=== PATIENT | male | born 1940 | race Caucasian/White ===

== ENCOUNTER → 2020-04-07 11:48 | Outpatient (BNVA) | payer MEDICARE, BC, SELFPAY | PROVIDERS: Family Provider Family Medicine; PCP Family Medicine; Visit Provider Nurse Practitioner Family | DX: I10 Essential (primary) hypertension (principal); E03.9 Hypothyroidism, unspecified; E78.5 Hyperlipidemia, unspecified; Z79.899 Other long term (current) drug therapy; Z12.5 Encounter for screening for malignant neoplasm of prostate | CPT/HCPCS: 36415; 80053; 80061; 81003; 83036; 84443; 85025; G0103 ==

== ENCOUNTER 2020-08-10 11:58 | Emergency (ER) | payer MEDICARE, BC, SELFPAY ==
[2020-08-10] VITALS (13 sets, daily range): BP systolic 113–141; BP diastolic 74–102; PULSE 70–90; RESP 12–27; TEMP 36.6–37.1; O2SAT 97–98; BMI 28.7
--- NOTE | 2020-08-10 12:36 | XR_ITS ---
WS: [id number] PORTABLE CHEST HISTORY: covid. Possible pneumonia. COMPARISON: None available. Lungs are clear and well expanded. No pleural effusion or pneumothorax. Cardiac size: Normal. Mediastinum/Aorta: Normal mediastinum. No osseous abnormality seen. XR/XR chest 1V portable [id number] IMPRESSION: Unremarkable portable chest.
--- NOTE | 2020-08-10 12:39 | W.ED.COVID ---
HPI - COVID General: Chief Complaint: Infusion [place] Stated Complaint: Covid Symptoms/ N/V Fever Time Seen by Provider: 08/10/20 12:21 Triage information: Has fever, cough or shortness of breath. No known COVID + exposure last 14 days History of Present Illness: HPI Narrative: The patient is a 79-year-old male who comes to the ER complaining of 10 days of weakness, nausea, vomiting, fever, and chills. He was diagnosed with Covid during that time. He says he went to visit his primary care physician today complaining of fatigue and he was sent to the ER for evaluation of his symptoms and possible Bam infusion complaint: known COVID positive COVID 19 common symptoms: positive fever(s), chills, loss of sense of smell and/or taste, nausea and vomiting; negative non-productive cough, productive cough, dyspnea, headache(s), throat pain or nasal congestion COVID 19 other sytmptoms: negative chest pain, requiring oxygen, respiratory distress or confusion Onset (ago): day(s) (10) Severity: mild Pertinent comorbid conditions: hypertension COVID Results: SARS-CoV-2 Antigen (Rapid) Positive (Negative) H 08/10/20 15:03 08/10/20 Review of Systems General: Reports: 10 or more systems reviewed and unremarkable except in HPI and below Const: Reports: fever(s) and chills Eyes: Denies: change in vision, blurry vision or eye redness ENMT: Denies: throat pain, swelling of lips/tongue, ear or mastoid pain or nasal congestion Card: Denies: chest pain Resp: Denies: dyspnea, productive cough or non-productive cough GI: Reports: nausea and vomiting : Denies: flank pain, urinary frequency or urinary urgency Musc: Denies: neck pain, back pain, extremity pain, joint pain, joint redness, limited range of motion or muscle weakness Skin/Breast: Denies: rash, pruritus, erythema, skin pain or skin tenderness Neuro: Denies: headache(s), numbness in extremities, weakness in extremities, sensory changes, difficulty walking, dizziness, confusion or Slurred speech present Psych: Denies: anxiety or depression Endo: Denies: polyuria All/Imm: Denies: urticaria, throat swelling or tongue swelling PFSH ED PFSH: Medical History Essential hypertension H/O Guillain-[place] syndrome Hypothyroid Idiopathic chronic gout, left hand, without tophus (tophi) Impacted cerumen, bilateral Reactive depression Surgical History S/P cholecystectomy Social History (Updated 08/10/20 @ 12:18 by Jarek Webb RN) Smoking and tobacco status: never smoked Second hand smoke exposure: No Smoking risk assessment/counseling performed?: No Alcohol intake: current Alcohol intake frequency: few times a month Alcohol type: beer Desire information about alcohol rehabilitation?: No Counseling given: No Substance/Drug Use: never Physical Exam Const: COMMON NORMALS: no acute distress, average body habitus, patient oriented x3, no limitations, healthy appearing, alert and well nourished GENERAL APPEARANCE: cooperative, comfortable, well kempt and well developed ORIENTATION/CONSCIOUSNESS: Yes awake, Yes oriented to person, Yes oriented to place and Yes oriented to time HENMT: COMMON NORMALS: normocephalic, external ears normal and Normal external nose present HEAD & SCALP: normal to inspection and normocephalic NOSE: Normal external nose present EXTERNAL EAR: Yes external ears normal MOUTH: Normal oral and palatal mucosa present THROAT: posterior oropharynx normal Eye: COMMON NORMALS: Equal, round and reactive pupils present and EOMs intact bilaterally GENERAL EYE: appearance normal, both eyes and all related structures PUPIL: Yes Equal, round and reactive pupils present Neck/C-Spine: COMMON NORMALS: full ROM, no lymphadenopathy, no meningeal signs and no JVD GENERAL: Yes normal visual inspection Lymph: LYMPHATIC: no lymphadenopathy noted Chest: COMMONS NORMALS: normal inspection of the chest and normal palpation of entire chest wall Resp: COMMON NORMALS: normal respiratory effort, No retractions, No use of accessory muscles, clear to auscultation bilaterally and percussion normal EFFORT & INSPECTION: Yes able to speak in complete sentences AUSCULTATION: clear to auscultation bilaterally PERCUSSION: percussion normal Cardio: COMMON NORMALS: no JVD, regular rate, regular rhythm, S1 normal heart sound present, S2 normal heart sound present and Peripheral pulses 2+ throughout RATE: regular rate RHYTHM: regular rhythm HEART SOUNDS: S1 normal heart sound present and S2 normal heart sound present PERIPHERAL PULSES: Peripheral pulses 2+ throughout GI: COMMON NORMALS: Normal to inspection, nondistended, normoactive bowel sounds present, Soft to palpation, non-tender and no masses INSPECTION: Yes normal to inspection PALPATION: Yes Soft to palpation : COMMON NORMALS: Yes no CVA tenderness BLADDER/KIDNEY EXAM: Yes no CVA tenderness Back/Pelvis: COMMON NORMALS: no CVA tenderness, thoracic and lumbar spine normal to inspection, no thoracic nor lumbar tenderness and thoraco-lumbar ROM normal Extremity: COMMON NORMALS: normal to inspection, full ROM, capillary refill normal, no joint enlargement and no pedal edema GENERAL: Yes normal exam except as noted Neuro: COMMON NORMALS: patient oriented x3, CN's II-XII intact bilaterally, moves all extremities, no focal motor deficits, no sensory deficits noted and gait normal SENSORIUM/ORIENTATION: Yes alert, Yes oriented to person, Yes oriented to place and Yes oriented to time MENINGEAL SIGNS: Yes no meningeal signs Psych: COMMON NORMALS: mental status grossly normal, Normal thought process present, cooperative, normal affect and speech normal APPEARANCE: Yes well kempt ATTITUDE: Yes calm SPEECH: Yes normal speech THOUGHT PROCESS: Normal thought process present Skin: COMMON NORMALS: no rashes or lesions noted GENERAL SKIN EXAM: no rashes or lesions noted Course Vital Signs: Vital signs: Vital Signs Temperature 98.7 F 08/10/20 18:50 Pulse Rate 80 08/10/20 18:50 Respiratory Rate 18 08/10/20 18:50 Blood Pressure 137/94 08/10/20 18:50 Pulse Oximetry 97 08/10/20 18:50 MDM - COVID MDM Narrative: Medical decision making narrative: The patient comes into the ER 10 days after symptoms started for coronavirus-like symptoms. He swabbed positive for coronavirus today in the ER. He was given a BAM injection and discharge. Recommended following up with primary care physician in 3 to 5 days and returning to the ER with worsening symptoms Lab Data: Labs: Lab Results 08/10/20 08/10/20 08/10/20 Range/Units 12:53 12:53 12:53 WBC 4.2 (4.0-10.0) 10^3/ uL RBC 4.89 (4.1-5.3) 10^6/u L Hgb 15.2 (11.7-16.6) g/dL Hct 45.9 (42.0-52.0) % MCV 93.9 (80-94) fL MCH 31.1 (28.0-34.0) pg MCHC 33.1 (30.0-36.0) g/dL RDW 12.6 (12.1-15.1) % Plt Count 142 (130-400) 10^3/c mm MPV 11.9 H (7.4-10.4) fL Neut % (Auto) 64.0 % Lymph % (Auto) 24.8 % [place] % (Auto) 10.3 % Eos % (Auto) 0.0 % Baso % (Auto) 0.2 % Neut # (Auto) 2.68 (1.8-7.7) 10^3/u L Lymph # (Auto) 1.0 (0.8-4.8) 10^3/u L [place] # (Auto) 0.4 (0.2-0.9) 10^3/u L Eos # (Auto) 0.0 (0.0-0.8) 10^3/u L Baso # (Auto) 0.0 (0.0-0.1) 10^3/u L Nucleated RBC % (a uto) 0 % Nucleated RBCs # 0.0 /100WBC Sodium 134 L (136-145) mmol/L Potassium 3.6 (3.5-5.1) mmol/L Chloride 96 L (98-107) mmol/L Carbon Dioxide 24 (22-29) mmol/L Anion Gap 17.6 (5-19) BUN 28 H (8-23) mg/dL Creatinine 1.2 (0.7-1.2) mg/dL GFR Calculation Not Reportable Glucose 107 (65-115) mg/dL Calculated Osmolal ity 284 L (285-295) mOsm/k g Lactic Acid 1.9 (0.5-2.2) mmol/L Calcium 9.3 (8.5-10.5) mg/dL Total Bilirubin 0.6 (0.15-1.2) mg/dL AST 40 (0-40) U/L ALT 54 H (0-41) U/L Alkaline Phosphata se 89 (40-130) IU/L Troponin T Gen 5 n g/L (0-15) ng/L Total Protein 7.9 (6.6-8.7) g/dL Albumin 4.0 (3.5-5.2) g/dL Globulin 3.9 (1.3-4.6) g/dL SARS-CoV-2 Ag (Rap id) (Negative) 08/10/20 08/10/20 Range/Units 12:53 15:03 WBC (4.0-10.0) 10^3/ uL RBC (4.1-5.3) 10^6/u L Hgb (11.7-16.6) g/dL Hct (42.0-52.0) % MCV (80-94) fL MCH (28.0-34.0) pg MCHC (30.0-36.0) g/dL RDW (12.1-15.1) % Plt Count (130-400) 10^3/c mm MPV (7.4-10.4) fL Neut % (Auto) % Lymph % (Auto) % [place] % (Auto) % Eos % (Auto) % Baso % (Auto) % Neut # (Auto) (1.8-7.7) 10^3/u L Lymph # (Auto) (0.8-4.8) 10^3/u L [place] # (Auto) (0.2-0.9) 10^3/u L Eos # (Auto) (0.0-0.8) 10^3/u L Baso # (Auto) (0.0-0.1) 10^3/u L Nucleated RBC % (a uto) % Nucleated RBCs # /100WBC Sodium (136-145) mmol/L Potassium (3.5-5.1) mmol/L Chloride (98-107) mmol/L Carbon Dioxide (22-29) mmol/L Anion Gap (5-19) BUN (8-23) mg/dL Creatinine (0.7-1.2) mg/dL GFR Calculation Glucose (65-115) mg/dL Calculated Osmolal ity (285-295) mOsm/k g Lactic Acid (0.5-2.2) mmol/L Calcium (8.5-10.5) mg/dL Total Bilirubin (0.15-1.2) mg/dL AST (0-40) U/L ALT (0-41) U/L Alkaline Phosphata se (40-130) IU/L Troponin T Gen 5 n g/L 25 H (0-15) ng/L Total Protein (6.6-8.7) g/dL Albumin (3.5-5.2) g/dL Globulin (1.3-4.6) g/dL SARS-CoV-2 Ag (Rap id) Positive H (Negative) COVID Results: SARS-CoV-2 Antigen (Rapid) Positive (Negative) H 08/10/20 15:03 08/10/20 Discharge Plan Discharge Patient Disposition: Home Clinical Impression: COVID-19 determined by clinical diagnostic criteria Condition: Stable Prescriptions: No Action lisinopril-hydrochlorothiazide 20-12.5 mg tablet See Rx Instructions .ROUTE .COMPLEX Qty: 90 RF: 2 Multi-Vitamin Tablet 1 tab PO DAILY@0600 RF: 0 levothyroxine 150 mcg tablet 150 mcg PO DAILY@0600 RF: 0 Discharge Orders: Discharge ED (Routine); Ordered 08/10/20 Ordered By: Syed Brandt Referrals: Mojgan Wilburn MD [Primary Care Provider] - Discharge Diet: Advance as tolerated Discharge Activity: Resume usual activity Activity Restrictions/Additional Instructions: Have been diagnosed with coronavirus. Please continue to take Tylenol at home to help with fever and muscle aches and return to the ER with worsening symptoms. You have been given the BAM infusion which should help your symptoms in the coming days. Return to the ER with worsening symptoms at any time. Follow-up with your primary care physician in a few days to monitor improvement otherwise. Coding Level of Care Code ED Farm Operations Technical Director for [facility] Exam Comprehensive
[2020-08-10 13:03] LABS: Basophils % 0.2 %; Hematocrit 45.9 % (42.0-52.0); Hemoglobin 15.2 g/dL (11.7-16.6); Lymphocytes % 24.8 %; Mean Corpuscular HGB Conc 33.1 g/dL (30.0-36.0); Mean Corpuscular Hemoglobin 31.1 pg (28.0-34.0); Mean Corpuscular Volume 93.9 fL (80-94); Mean Platelet Volume 11.9 fL (7.4-10.4); Monocytes # 0.4 10^3/uL (0.2-0.9); Monocytes % 10.3 %; Neutrophils # 2.68 10^3/uL (1.8-7.7); Nucleated Red Blood Cells % 0 %; Platelet Count 142 10^3/cmm (130-400); Red Blood Count 4.89 10^6/uL (4.1-5.3); Red Cell Distribution Width 12.6 % (12.1-15.1); White Blood Count 4.2 10^3/uL (4.0-10.0)
[2020-08-10] MEDS: acetaminophen 325 mg Tablet 650 MG PO (13:05)
[2020-08-10] MEDS: sodium chloride 0.9% 1,000 ML 999 ML IV (13:06)
[2020-08-10] MEDS: ondansetron 2 mg/ML SDV 2 mL 4 MG IV (13:06)
[2020-08-10 13:23] LABS: Lactic Sepsis W/Reflex 1.9 mmol/L (0.5-2.2)
[2020-08-10 13:24] LABS: Alanine Aminotransferase 54 U/L (0-41); Alkaline Phosphatase 89 IU/L (40-130); Anion Gap 17.6 (5-19); Aspartate Amino Transferase 40 U/L (0-40); Blood Urea Nitrogen 28 mg/dL (8-23); Calcium 9.3 mg/dL (8.5-10.5); Carbon Dioxide 24 mmol/L (22-29); Chloride 96 mmol/L (98-107); Globulin 3.9 g/dL (1.3-4.6); Glucose 107 mg/dL (65-115); Osmolality Calculated 284 mOsm/kg (285-295); Potassium 3.6 mmol/L (3.5-5.1); Sodium 134 mmol/L (136-145); Total Bilirubin 0.6 mg/dL (0.15-1.2); Total Protein 7.9 g/dL (6.6-8.7)
[2020-08-10 14:55] LABS: Troponin T (5th) Once 25 ng/L (0-15)
[2020-08-10 15:46] LABS: SARS Covid-2 Antigen Positive (Negative)
--- NOTE | 2020-08-18 12:15 | DCPLANNER ---
Addendum entered by Eileen Nunez 08/23/20 13:59: records and information manager called to check on patient after receiving the BAM infusion. records and information manager unable to speak with patient at this time, a voicemail was left for patient to return complex case manager phone call. Original Note: records and information manager had message that patient received the BAM infusion. records and information manager called to check on patient after receiving the infusion. Patient stated that he is feeling better. Stated that before the infusion he had an upset stomach. He had a fever and chills, body aches, no cough. After the infusion he stated that he is feeling better, does not have an upset stomach, he is very weak. Patient stated that he will call and schedule a follow up appointment with primary care.
== END 2020-08-10 19:12 | disposition home or self-care (01) ==
PROVIDERS: Emergency Provider Family Medicine; Family Provider Family Medicine; PCP Family Medicine
DX: U07.1 COVID-19 (principal); I10 Essential (primary) hypertension
CPT/HCPCS: 12345; 71045; 80053; 83605; 84484; 85025; 87426; 96365; 96375; 99283; 99284; J2405; J7030; J7050

== ENCOUNTER → 2021-05-24 10:49 | Outpatient (BNVA) | payer MEDICARE, BC, SELFPAY | PROVIDERS: Family Provider Family Medicine; PCP Family Medicine; Visit Provider Family Medicine | DX: E03.9 Hypothyroidism, unspecified (principal); I10 Essential (primary) hypertension; Z00.00 Encounter for general adult medical examination without abnormal findings | CPT/HCPCS: 80053; 84443; 85025 ==

== ENCOUNTER → 2022-08-21 10:51 | Outpatient (BNVA) | payer MEDICARE, SELFPAY | PROVIDERS: Family Provider Family Medicine; PCP Family Medicine; Visit Provider Family Medicine | DX: I10 Essential (primary) hypertension (principal); H61.23 Impacted cerumen, bilateral | CPT/HCPCS: 80053; 84443; 85025 ==

== ENCOUNTER → 2022-10-18 10:53 | Outpatient (BNVA) | payer MEDICARE, SELFPAY | PROVIDERS: Family Provider Family Medicine; PCP Family Medicine; Visit Provider Family Medicine | DX: E03.9 Hypothyroidism, unspecified (principal); I10 Essential (primary) hypertension | CPT/HCPCS: 84443 ==

== ENCOUNTER 2022-11-12 11:46 | Outpatient (CLI) | payer MEDICARE, SELFPAY ==
--- NOTE | 2022-11-12 12:05 | XR_ITS ---
WS: [id number] EXAMINATION: XR chest 2V* [id number] REASON FOR EXAM: atypical left chest pain/possibly trauma 1 wk prior COMPARISON: None available. ORDER DATE: 11/12/2022 12:11 PM FINDINGS: There are scattered perihilar granulomatous calcifications. There are chronically increased perihilar /basilar bronchovascular and interstitial thickening with hyperinflation. The cardiac and mediastin al outlines are unremarkable except for atherosclerotic aortic change.. There are no pleural effusion s. There are no discrete noncalcified pulmonary nodules. Chronic degenerative spine changes are prese nt. XR/XR chest 2V* [id number] IMPRESSION: DIFFUSE PULMONARY CHANGES OF COPD. NO ACUTE PULMONARY CHANGE.
== END 2022-11-12 11:47 | disposition home or self-care (01) ==
PROVIDERS: PCP Family Medicine; Visit Provider Family Medicine
DX: R07.89 Other chest pain (principal); J44.9 Chronic obstructive pulmonary disease, unspecified; I10 Essential (primary) hypertension
CPT/HCPCS: 71046; 80053; 84484; 85025

== ENCOUNTER → 2023-01-10 10:26 | Outpatient (BNVA) | payer MEDICARE, SELFPAY | PROVIDERS: PCP Family Medicine; Visit Provider Family Medicine | DX: B02.29 Other postherpetic nervous system involvement (principal); B02.23 Postherpetic polyneuropathy; E53.8 Deficiency of other specified B group vitamins | CPT/HCPCS: 80053; 82607; 85025; 85651 ==

== ENCOUNTER → 2024-01-15 10:05 | Outpatient (BNVA) | payer MEDICARE, SELFPAY | PROVIDERS: PCP Family Medicine; Visit Provider Family Medicine | DX: I10 Essential (primary) hypertension (principal); E03.9 Hypothyroidism, unspecified; H61.23 Impacted cerumen, bilateral; B02.23 Postherpetic polyneuropathy; T63.301A Toxic effect of unspecified spider venom, accidental (unintentional), initial encounter | CPT/HCPCS: 80053; 84443; 85025 ==

== ENCOUNTER 2024-07-23 18:04 | Observation (INO) | payer MEDICARE, SELFPAY ==
[2024-07-23] VITALS (12 sets, daily range): BP systolic 144–222; BP diastolic 99–141; PULSE 84–99; RESP 17–20; TEMP 36.9; O2SAT 95–100; BMI 29.0
--- NOTE | 2024-07-23 18:40 | CTR_ITS ---
PROCEDURE INFORMATION: Exam: CTA Head With Contrast, Arteriography Exam date and time: 07/23/2024 6:49 PM Age: 83 years old Clinical indication: Stroke-like symptoms; Left upper extremity numbness/paresthesia; Additional info: Possible stroke TECHNIQUE: Imaging protocol: Computed tomographic angiography of the head with contrast. Exam focused on the arteries. 3D rendering (Not supervised by radiologist): MIP and/or 3D reconstructed images were created by the technologist. Radiation optimization: All CT scans at this facility use at least one of these dose optimization techniques: automated exposure control; mA and/or kV adjustment per patient size (includes targeted exams where dose is matched to clinical indication); or iterative reconstruction. Contrast material: OMNI 350; Contrast volume: 100 ml; Contrast route: INTRAVENOUS (IV); COMPARISON: CT head wo con* [id number] 07/23/2024 6:42 PM RADIATION DOSE METRICS: Total DLP (mGy-cm): 590.23 FINDINGS: ANTERIOR CIRCULATION: Right internal carotid artery: Areas of mild stenosis noted in the intracranial segments. No occlusion. No aneurysm. Right middle cerebral artery: No occlusion or significant stenosis. No aneurysm. Right anterior cerebral artery: Moderate to severe stenosis at the A1 segment of the right anterior cerebral artery just past the origin. No aneurysm. Left internal carotid artery: Areas of mild stenosis noted in the intracranial segments. No occlusion. No aneurysm. Left middle cerebral artery: No occlusion or significant stenosis. No aneurysm. Left anterior cerebral artery: No occlusion or significant stenosis. No aneurysm. POSTERIOR CIRCULATION: Right vertebral artery: No occlusion or significant stenosis. No aneurysm. Left vertebral artery: Mild stenosis of the vertebral artery proximal to the basilar artery. No occlusion. No aneurysm. Basilar artery: No occlusion or significant stenosis. No aneurysm. Right posterior cerebral artery: No occlusion or significant stenosis. No aneurysm. Left posterior cerebral artery: No occlusion or significant stenosis. No aneurysm. Brain: No definite mass, mass effect, or midline shift. Cerebral ventricles: No ventriculomegaly. Bones/joints: Unremarkable. No acute fracture. Soft tissues: Unremarkable. PROCEDURE INFORMATION: Exam: CTA Neck With Contrast Exam date and time: 07/23/2024 6:49 PM Age: 83 years old Clinical indication: Stroke-like symptoms; Left upper extremity numbness/paresthesia; Additional info: Possible stroke TECHNIQUE: Imaging protocol: Computed tomographic angiography of the neck with contrast. Exam focused on the cervical segments of the vasculature. 3D rendering (Not supervised by radiologist): MIP and/or 3D reconstructed images were created by the technologist. Radiation optimization: All CT scans at this facility use at least one of these dose optimization techniques: automated exposure control; mA and/or kV adjustment per patient size (includes targeted exams where dose is matched to clinical indication); or iterative reconstruction. Contrast material: OMNI 350; Contrast volume: 100 ml; Contrast route: INTRAVENOUS (IV); COMPARISON: CT head wo [facility]* [id number] 07/23/2024 6:42 PM RADIATION DOSE METRICS: Total DLP (mGy-cm): 590.23 FINDINGS: Right common carotid artery: No stenosis. No dissection or occlusion. Right internal carotid artery: Mild stenosis at the origin. No dissection or occlusion. Right external carotid artery: No occlusion or stenosis of the origin. Left common carotid artery: No stenosis. No dissection or occlusion. Left internal carotid artery: Mild stenosis at the origin. No dissection or occlusion. Left external carotid artery: No occlusion or stenosis of the origin. Right vertebral artery: No stenosis. No dissection or occlusion. Left vertebral artery: No stenosis. No dissection or occlusion. Soft tissues: Normal. No significant soft tissue swelling. Bones/joints: No acute fracture. CT/CT angio headneck* [id number] IMPRESSION: 1. No large vessel occlusion. 2. 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 3. Areas of mild stenosis noted in the intracranial segments of the internal carotid arteries and left vertebral artery. IMPRESSION: 1. No severe stenosis or occlusion. 2. Mild stenosis at the origins of the internal carotid arteries. REFERENCES: NASCET CRITERIA. The degree of stenosis in the cervical segment of the internal carotid artery is based on NASCET criteria. Normal is no stenosis. Mild is less than 50% stenosis. Moderate is 50-69% stenosis. Severe is 70% to 99% stenosis. Total occlusion is no detectable patent lumen.
--- NOTE | 2024-07-23 18:40 | CTR_ITS ---
PROCEDURE INFORMATION: Exam: CT Head Without Contrast Exam date and time: 07/23/2024 6:42 PM Age: 83 years old Clinical indication: Stroke-like symptoms; Left upper extremity numbness/paresthesia; Additional info: Possible stroke TECHNIQUE: Imaging protocol: Computed tomography of the head without contrast. Radiation optimization: All CT scans at this facility use at least one of these dose optimization techniques: automated exposure control; mA and/or kV adjustment per patient size (includes targeted exams where dose is matched to clinical indication); or iterative reconstruction. Other technique: STROKE PROTOCOL was implemented. COMPARISON: No relevant prior studies available. RADIATION DOSE METRICS: Total DLP (mGy-cm): 1080.88 FINDINGS: Brain: No hemorrhage. No edema. Moderate diffuse cerebral atrophy and mild sequela of chronic small vessel ischemic disease. No mass effect. Cerebral ventricles: No ventriculomegaly. Paranasal sinuses: Visualized sinuses are unremarkable. No fluid levels. Mastoid air cells: Visualized mastoid air cells are well aerated. Bones: Unremarkable. No acute fracture. Soft tissues: Unremarkable. CT/CT head wo con* [id number] IMPRESSION: No acute intracranial abnormality. ASSESSMENT: ASPECTS ([place] Stroke Program Early CT Score) is 10.
[2024-07-23 18:58] LABS: Basophils % 0.4 %; Eosinophils # 0.2 10^3/uL (0.0-0.8); Eosinophils % 2.2 %; Hematocrit 47.3 % (37-53); Lymphocytes # 1.6 10^3/uL (0.8-4.8); Mean Corpuscular HGB Conc 33.6 g/dL (30-55); Mean Corpuscular Hemoglobin 32.1 pg (27-33); Mean Corpuscular Volume 95.6 fl (82-101); Mean Platelet Volume 11.1 fL (7.4-10.4); Monocytes # 0.6 10^3/uL (0.2-0.9); Monocytes % 7.5 %; Neutrophils # 5.36 10^3/uL (1.8-7.7); Neutrophils % 69.3 %; Nucleated Red Blood Cells % 0 %; Platelet Count 211 10^3/cmm (157-399); Red Blood Count 4.95 10^6/uL (3.85-5.65); Red Cell Distribution Width 12.4 % (12.1-15.1); White Blood Count 7.74 10^3/uL (3.29-11.43)
--- NOTE | 2024-07-23 19:00 | ECG_ITS ---
[facility]24[facility]23 Pat Name: Diaz Bravo Department: Room: Gender: Male Senior Publications Specialist: : 1940 Requested By: Sandy Owens Order Number: [id number] Vivian MD: Angela Trejo M.D. Measurements Intervals [place] Rate: 89 P: 44 NM: 164 QRS: 0 QRSD: 86 T: 15 QT: 355 QTc: 433 Interpretive Statements SINUS RHYTHM WITH MARKED SINUS ARRHYTHMIA MODERATE ST DEPRESSION [0.05+ mV ST DEPRESSION] No previous ECG available for comparison Electronically Signed On 07-23-2024 23:55:40 [employer]LECTRONIC [employer]OLS REPAIRER SUPERVISOR by Angela Trejo M.D. [email or web address]
[2024-07-23] MEDS: iohexol 350 mg/mL 500 mL Btl (per mL) IV (19:03)
[2024-07-23 19:09] LABS: Glucose Point of Care 109 mg/dL (70-110)
[2024-07-23 19:12] LABS: INR 0.96 (0.8-1.2); Partial Thromboplastin Time 28.6 SECONDS (23.9-36.7)
[2024-07-23 19:20] LABS: Alanine Aminotransferase 25 U/L (0-41); Albumin Level 4.5 g/dL (3.5-5.2); Alkaline Phosphatase 85 U/L (40-130); Anion Gap 14.9 (5-19); Aspartate Amino Transferase 25 U/L (0-40); Blood Urea Nitrogen 16 mg/dL (8-23); Calcium 10.4 mg/dL (8.5-10.5); Carbon Dioxide 26 mmol/L (22-29); Chloride 101 mmol/L (98-107); Creatinine Clr Calc Pharmacy 84.9342; Globulin 3.7 g/dL (1.3-4.6); Glucose 114 mg/dL (65-115); Osmolality Calculated 288 mOsm/kg (285-295); Potassium 3.9 mmol/L (3.5-5.1); Sodium 138 mmol/L (136-145); Total Bilirubin 0.6 mg/dL (0.15-1.2); Total Protein 8.2 g/dL (6.6-8.7)
--- NOTE | 2024-07-23 19:38 | W.ED.DIZZY ---
HPI - Dizziness General: Chief Complaint: Dizziness Stated Complaint: lips are numb, left arm 2 fingers numb Time Seen by Provider: 07/23/24 18:29 History of Present Illness: HPI Narrative: 83-year-old man with a history of hypertension and hypothyroidism who presents emergency room with neurologic symptoms. He says that about 10 AM today he had some numbness around his mouth. Numbness in his second and third fingers on his left hand. And some vertigo/gait issues. Family says he is unsteady on his feet. No nystagmus on exam. No slurred speech. No focal motor deficits. No drift. Related Data Home Medications Medication Instructions Recorded Confirmed multivitamin 1 tab PO DAILY@0600 08/10/20 05/28/24 sour josé extract 1,000 mg mg PO 05/24/21 05/28/24 capsule (Tart Jsoé Extract) Previous Rx's Medication Instructions Recorded levothyroxine 175 mcg capsule 175 mcg PO DAILY #90 caps 09/11/23 gabapentin 300 mg capsule 300 mg PO BID PRN neuropathic pain 01/15/24 from zoster #180 caps lisinopril 10 mg tablet 10 mg PO DAILY #90 tabs 01/15/24 sulindac 200 mg tablet 200 mg PO BID PRN arthritis pain 04/08/24 #20 tabs CPAP machine / supplies #1 ea 06/25/24 Allergies Allergy/AdvReac Type Severity Reaction Status Date / Time No Known Allergies Allergy Verified 07/23/24 18:26 Review of Systems Narrative: Constitutional symptoms: Negative except as documented in HPI. Skin symptoms: Negative except as documented in HPI. Eye symptoms: Negative except as documented in HPI. ENMT symptoms: Negative except as documented in HPI. Respiratory symptoms: Negative except as documented in HPI. Cardiovascular symptoms: Negative except as documented in HPI. Gastrointestinal symptoms: Negative except as documented in HPI. Genitourinary symptoms: Negative except as documented in HPI. Musculoskeletal symptoms: Negative except as documented in HPI. Neurologic symptoms: Negative except as documented in HPI. Psychiatric symptoms: Negative except as documented in HPI. Endocrine symptoms: Negative except as documented in HPI. 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 Skin: Warm, dry. Head: Normocephalic, atraumatic. Neck: Supple, trachea midline. Eye: Extraocular movements are intact. Ears, nose, mouth and throat: mucosa moist. Cardiovascular: Regular, Normal peripheral perfusion. Respiratory: Lungs are clear to auscultation, respirations are non-labored, breath sounds are equal, Symmetrical chest wall expansion. Gastrointestinal: Soft, Nontender, Non distended Musculoskeletal: Normal ROM, no deformity. Neurological: Alert and oriented, No focal neurological deficit observed. Psychiatric: Cooperative, appropriate mood & affect. Course Vital Signs: Vital signs: Vital Signs Temperature 98.4 F 07/23/24 18:20 Pulse Rate 94 07/23/24 21:45 Respiratory Rate 20 H 07/23/24 21:45 Blood Pressure 160/110 07/23/24 21:45 Pulse Oximetry 98 07/23/24 21:45 Oxygen Delivery Me thod Room Air 07/23/24 21:45 MDM - Dizziness Medical Decision Making Medical decision making: Differential diagnosis for patient with focal neurologic deficit(s) includes but not limited to and based on the above HPI, review of systems and physical exam: ischemic stroke, hemorrhagic stroke and embolic stroke secondary to atrial fibrillation), TIA, Way's palsey, metabolic encephalopathy with previous stroke. Orders placed to evaluate differential diagnosis based on the above differential, HPI and physical exam NIH Stroke Scale/Score (NIHSS) from [email or web address] on 07/23/2024 All calculations should be rechecked by clinician prior to use RESULT SUMMARY: 0 points NIH Stroke Scale INPUTS: 1A: Level of consciousness ?> 0 = Alert; keenly responsive 1B: Ask month and age ?> 0 = Both questions right 1C: 'Blink eyes' & 'squeeze hands' ?> 0 = Performs both tasks 2: Horizontal extraocular movements ?> 0 = Normal 3: Visual leonardo ?> 0 = No visual loss 4: Facial palsy ?> 0 = Normal symmetry 5A: Left arm motor drift ?> 0 = No drift for 10 seconds 5B: Right arm motor drift ?> 0 = No drift for 10 seconds 6A: Left leg motor drift ?> 0 = No drift for 5 seconds 6B: Right leg motor drift ?> 0 = No drift for 5 seconds 7: Limb Ataxia ?> 0 = No ataxia 8: Sensation ?> 0 = Normal; no sensory loss 9: Language/aphasia ?> 0 = Normal; no aphasia 10: Dysarthria ?> 0 = Normal 11: Extinction/inattention ?> 0 = No abnormality Consultation: I spoke with Dr. Vigil after stroke was called upon patient arrival. She agrees with CT and CTA. Patient is outside the window for TNKase. Stroke scale is 0. Lab Review: Laboratory results were reviewed and interpreted by myself the emergency room physician. Lab work is fairly unremarkable. No leukocytosis. No anemia. Renal function is normal. Patient has some leukocyte esterase and a few whites in his urine so I am giving him some Rocephin. However this may not be a real urinary tract infection. CT head: No acute intracranial process. no intracranial hemorrhage, no evidence of infarct. no evidence of acute fracture.This was reviewed and interpreted by myself the ER physician. CTA of the head and neck: No obvious severe stenosis or occlusions are identified. See full read in the radiology report. No mass. This was reviewed and interpreted by myself the emergency room physician. I also reviewed the radiology report. I reviewed the patient's medical record. Reexamination: Patient continues to have perioral numbness and some numbness in his left second and third digit. When I walk him he has some gait abnormality. He seems to drift towards the right and stumbles at times. He says this is not his normal. Consultation: I spoke again with Dr. Vigil. She recommends not aggressively treating his blood pressure. That passive hypertension is best and a person with acute neurologic symptoms. Consultation: I spoke with Dr. Haro who is on-call for the hospitalist. He agrees to admission for observation with neurochecks and cardiac monitoring. Assessment and plan: Neurologic symptoms Accelerated hypertension Perioral numbness Paresthesia Gait difficulty ?Clonidine and hydralazine for blood pressure. Musa recommends no more aggressive treatment of his blood pressure. -I discussed the patient with the hospitalist on-call who is admitting the patient. - Discussed findings and plan with patient. Answered any questions. - All laboratory values were reviewed and interpreted personally by myself, the ER physician - All imaging was reviewed and interpreted personally by myself, the ER physician. - Evaluation and treatment of this problem were appropriate in the emergency setting Lab Data 07/23/24 18:49 07/23/24 18:[address] 07/23/24 18:40 IMPRESSION: No acute intracranial abnormality. ASSESSMENT: ASPECTS (Darya Stroke Program Early CT Score) is 10. ADDENDUM: 07/23/241857 Findings were discussed with SANDY HARPER at 07/23/2024 6:57 PM SQL APPLICATION DEVELOPER. Head/Neck CTA 07/23/24 18:40 IMPRESSION: 1. No large vessel occlusion. 2. 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 3. Areas of mild stenosis noted in the intracranial segments of the internal carotid arteries and left vertebral artery. IMPRESSION: 1. No severe stenosis or occlusion. 2. Mild stenosis at the origins of the internal carotid arteries. REFERENCES: NASCET CRITERIA. The degree of stenosis in the cervical segment of the internal carotid artery is based on NASCET criteria. Normal is no stenosis. Mild is less than 50% stenosis. Moderate is 50-69% stenosis. Severe is 70% to 99% stenosis. Total occlusion is no detectable patent lumen. ADDENDUM: 07/23/241934 Findings were discussed with Dr. Cuenca at 07/23/2024 7:33 PM SQL APPLICATION DEVELOPER. Laboratory Results WBC 7.74 10^3/uL (3.29-11.43) 07/23/24 18:49 RBC 4.95 10^6/uL (3.85-5.65) 07/23/24 18:49 Hgb 15.90 g/dL (11.27-16.99) 07/23/24 18:49 Hct 47.3 % (37-53) 07/23/24 18:49 MCV 95.6 fl (82-101) 07/23/24 18:49 MCH 32.1 pg (27-33) 07/23/24 18:49 MCHC 33.6 g/dL (30-55) 07/23/24 18:49 RDW 12.4 % (12.1-15.1) 07/23/24 18:49 Plt Count 211 10^3/cmm (157-399) 07/23/24 18:49 MPV 11.1 fL (7.4-10.4) H 07/23/24 18:49 Neut % (Auto) 69.3 % 07/23/24 18:49 Lymph % (Auto) 20.0 % 07/23/24 18:49 Wharton % (Auto) 7.5 % 07/23/24 18:49 Eos % (Auto) 2.2 % 07/23/24 18:49 Baso % (Auto) 0.4 % 07/23/24 18:49 Neut # (Auto) 5.36 10^3/uL (1.8-7.7) 07/23/24 18:49 Lymph # (Auto) 1.6 10^3/uL (0.8-4.8) 07/23/24 18:49 Wharton # (Auto) 0.6 10^3/uL (0.2-0.9) 07/23/24 18:49 Eos # (Auto) 0.2 10^3/uL (0.0-0.8) 07/23/24 18:49 Baso # (Auto) 0.0 10^3/uL (0.0-0.1) 07/23/24 18:49 Nucleated RBC % (auto) 0 % 07/23/24 18:49 Nucleated RBCs # 0.0 /100WBC 07/23/24 18:49 PT 13.10 SECONDS (12.1-14.9) 07/23/24 18:49 INR 0.96 (0.8-1.2) 07/23/24 18:49 APTT 28.6 SECONDS (23.9-36.7) 07/23/24 18:49 Specimen Type Arterial 07/23/24 20:28 Sample Site Radial, right 07/23/24 20:28 ABG pH 7.42 (7.35-7.45) 07/23/24 20:28 ABG pCO2 37.9 mmHg (35-45) 07/23/24 20:28 ABG pO2 84.8 mmHg (80.0-100.0) 07/23/24 20:28 ABG PO2/FiO2 Ratio 403 07/23/24 20:28 ABG HCO3 24.8 mmol/L (22-26) 07/23/24 20:28 ABG O2 Saturation 97.6 07/23/24 20:28 ABG Base Excess 0.6 mmol/L (-2.0-2.0) 07/23/24 20:28 Jerson Test Pos 07/23/24 20:28 A-a O2 Gradient 2.3 mmHg (5-10) L 07/23/24 20:28 Hematocrit 48.9 % (42-52) 07/23/24 20:28 Hgb O2 Saturation 95.7 % (95-100) 07/23/24 20:28 Carboxyhemoglobin 1.1 %THgb (0.4-20.1) 07/23/24 20:28 Methemoglobin 0.9 % (0.4-1.5) 07/23/24 20:28 Total Hemoglobin 15.9 g/dL (14-18) 07/23/24 20:28 Sodium 141.0 mmol/L (131-143) 07/23/24 20:28 Potassium 3.7 mmol/L (3.5-5.0) 07/23/24 20:28 Glucose 117.0 mg/dL (70-115) H 07/23/24 20:28 Ionized Calcium 1.2 mmol/L (1.1-1.4) 07/23/24 20:28 O2 Delivery Device Room air 07/23/24 20:28 FiO2 21.0 % 07/23/24 20:28 Harbour Master ID [id number] 07/23/24 20:28 Sodium 138 mmol/L (136-145) 07/23/24 18:49 Potassium 3.9 mmol/L (3.5-5.1) 07/23/24 18:49 Chloride 101 mmol/L (98-107) 07/23/24 18:49 Carbon Dioxide 26 mmol/L (22-29) 07/23/24 18:49 Anion Gap 14.9 (5-19) 07/23/24 18:49 BUN 16 mg/dL (8-23) 07/23/24 18:49 Creatinine 0.8 mg/dL (0.7-1.2) 07/23/24 18:49 GFR Calculation Not Reportable 07/23/24 18:49 Glucose 114 mg/dL (65-115) 07/23/24 18:49 POC Glucose 109 mg/dL (70-110) 07/23/24 19:03 Calculated Osmolality 288 mOsm/kg (285-295) 07/23/24 18:49 Calcium 10.4 mg/dL (8.5-10.5) 07/23/24 18:49 Total Bilirubin 0.6 mg/dL (0.15-1.2) 07/23/24 18:49 AST 25 U/L (0-40) 07/23/24 18:49 ALT 25 U/L (0-41) 07/23/24 18:49 Alkaline Phosphatase 85 U/L (40-130) 07/23/24 18:49 Total Protein 8.2 g/dL (6.6-8.7) 07/23/24 18:49 Albumin 4.5 g/dL (3.5-5.2) 07/23/24 18:49 Globulin 3.7 g/dL (1.3-4.6) 07/23/24 18:49 Urine Color Yellow (Yellow) 07/23/24 19:52 Urine Appearance Clear (CLEAR) 07/23/24 19:52 Urine pH 7.0 (5-7) 07/23/24 19:52 Ur Specific [place] 1.038 (1.005-1.030) H 07/23/24 19:52 Urine Protein Negative (Negative) 07/23/24 19:52 Urine Glucose (UA) Negative (Normal) 07/23/24 19:52 Urine Ketones Negative (Negative) 07/23/24 19:52 Urine Blood Negative (Negative) 07/23/24 19:52 Urine Nitrate Negative (Negative) 07/23/24 19:52 Urine Bilirubin Negative (Negative) 07/23/24 19:52 Urine Urobilinogen 0.2 mg/dL (Negative) 07/23/24 19:52 Ur Leukocyte Esterase 2+ (Negative) A 07/23/24 19:52 Urine RBC 0-2 /hpf (0-2) 07/23/24 19:52 Urine WBC 6-10 /hpf (0-5) 07/23/24 19:52 Ur Squamous Epith Cells 0-5 /hpf (0-5) 07/23/24 19:52 Amorphous Sediment Not Reportable 07/23/24 19:52 Urine Bacteria None seen /hpf (NONE) 07/23/24 19:52 Hyaline Casts 0.81 /lpf 07/23/24 19:52 All radiology interpretation(s) finalized by discharge Discharge Plan Discharge Patient Disposition: Placed in Observation Clinical Impression: Accelerated hypertension, Gait difficulty, Paresthesia Coding Level of Care Code ED Chemical Detection Expert for Ann Marie Conner
[2024-07-23] MEDS: cloNIDine 0.1 mg Tablet PO (19:50)
[2024-07-23 20:06] LABS: Bilirubin Urine Negative (Negative); Blood Urine Negative (Negative); Glucose Urine UA Negative (Normal); Ketones Urine Negative (Negative); Leukocyte Esterase Urine 2+ (Negative); Nitrate Urine Negative (Negative); Protein Urine Negative (Negative); Urine Appearance Clear (CLEAR); Urine Color Yellow (Yellow); Urobilinogen Urine 0.2 mg/dL (Negative)
[2024-07-23 20:08] LABS: Bacteria Urine None Seen /hpf; Hyaline Casts Urine 0.81 /lpf; RBC Urine 0-2 /hpf (0-2); Squamous Epithelial Cell Urine 0-5 /hpf (0-5)
[2024-07-23 20:17] LABS: Specific Gravity, Urine 1.038 (1.005-1.030)
[2024-07-23 20:33] LABS: ABG PCO2 37.9 mmHg (35-45); ABG PH Result 7.42 (7.35-7.45); Alveolar-Arterial Oxygen Gradi 2.3 mmHg (5-10); Arterial Blood Gas Hematocrit 48.9 % (42-52); Base Excess ABG 0.6 mmol/L (-2.0-2.0); Blood Gas Allen Test Pos; Blood Gas Operator Identificat 600455; Blood Gas Sample Site Radial, right; Blood Gas Sample Type Arterial; Carboxyhemoglobin 1.1 %THgb (0.4-20.1); HCO3 ABG 24.8 mmol/L (22-26); HGB O2 Sat 95.7 % (95-100); Ionized Calcium Level - ABG 1.2 mmol/L (1.1-1.4); Methemoglobin 0.9 % (0.4-1.5); Oxygen Device ROOM AIR; Oxygen Saturation ABG 97.6; PO2 ABG 84.8 mmHg (80.0-100.0); PO2 FiO2 Ratio Arterial Blood 403; Potassium Level - ABG 3.7 mmol/L (3.5-5.0); Total Hemoglobin 15.9 g/dL (14-18)
[2024-07-23] MEDS: hyDRALAzine 20 mg/mL INJ 1 mL 10 MG IVP (20:56)
[2024-07-23] MEDS: cefTRIAXone 1,000 mg SDV 1000 MG IVP (20:58)
--- NOTE | 2024-07-23 21:34 | PC.NURSE ---
pt ambulated in hallway per dr. harper, pt walked with pt's walking stick and pt states my legs just don't feel right pt c/o feeling uneven. Pt able to ambulated hallway with no dizziness, no lightheaded, and no vision changes. Dr. Harper notified.
--- NOTE | 2024-07-23 22:38 | PM.HP ---
Providers/Chief Complaint Admitting Physician: Emanuel Kingston MD Primary Care Provider: Mojgan Wilburn MD Chief Complaint: lips are numb, left arm 2 fingers numb History of Present Illness Diaz Bravo is a 83 year old male with a past medical history of osteoarthritis, hypertension, history of Way's palsy, history of Guillain-Hua?, history of shingles, who presents to [facility] due to unsteadiness on his feet, numbness around his mouth, numbness left hand first 2 digits. Currently patient is alert oriented x 3, point all commands, denies any facial droop, no slurring of words, no visual deficits, denies any focal weakness currently. Currently his biggest complaint is numbness around his mouth, he also thinks he might have some numbness on his tongue, he has intermittent numbness of his left hand, first 2 digits, and he was able to ambulate in the hallway with the help of staff he feels unsteady on his feet. He tells me that all his symptoms started this morning at about 10 AM, he drove into town, when he was coming back, to his home, he started noticing his symptoms, he is quite independent, he has never had a stroke before, denies any other focal weakness, does feel unsteady on his feet, does report dizziness, no receptive or productive aphasia, no headache, no blurry vision. On examination his [id number] is abnormal on the left on examination his [id number]-[id number] is abnormal on the left, he is NIH stroke scale is 2, he is out of the window for tPA, his head CT had no acute findings, head CTA showed moderate to severe stenosis at the A1 segment of the right anterior cerebral artery just past the origin Review of Systems Const: Denies: fever(s) Card: Denies: chest pain Resp: Denies: dyspnea Neuro: Denies: headache(s) Medications/Allergies Home Medications Medication Instructions Recorded Confirmed Last Taken Type multivitamin 1 tab PO DAILY@0600 08/10/20 05/28/24 Unknown History sour josé extract 1,000 mg mg PO 05/24/21 05/28/24 Unknown History capsule (Tart José Extract) levothyroxine 175 mcg capsule 175 mcg PO DAILY #90 caps 09/11/23 05/28/24 Unknown Rx gabapentin 300 mg capsule 300 mg PO BID PRN neuropathic pain 01/15/24 05/28/24 Unknown Rx from zoster #180 caps lisinopril 10 mg tablet 10 mg PO DAILY #90 tabs 01/15/24 05/28/24 Unknown Rx sulindac 200 mg tablet 200 mg PO BID PRN arthritis pain 04/08/24 05/28/24 Unknown Rx #20 tabs CPAP machine / supplies #1 ea 06/25/24 Unknown Rx Allergies Allergy/AdvReac Type Severity Reaction Status Date / Time No Known Allergies Allergy Verified 07/23/24 18:26 PFSH Acute PFSH: Medical History Obstructive sleep apnea Enrolled in chronic care management Spider bite Post herpetic neuralgia Gout attack COVID-19 determined by clinical diagnostic criteria Impacted cerumen, bilateral 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, left hand, without tophus (tophi) Hypothyroid Essential hypertension Surgical History S/P cholecystectomy Social History Smoking and tobacco/nicotine status: former use of tobacco/nicotine Second hand smoke exposure: No Alcohol intake: current Alcohol intake frequency: few times a month Alcohol type: beer Substance/Drug Use: never Vitals/I&O/Wt Last Vital Signs Temp 98.4 F 07/23/24 18:20 Pulse 91 07/23/24 22:00 Resp 19 H 07/23/24 22:00 BP 144/101 07/23/24 22:00 Pulse Ox 99 07/23/24 22:00 O2 Del Method Room Air 07/23/24 22:00 Weight last 48 hrs Weight 94.347 kg Physical Exam Const: COMMON NORMALS: no acute distress and patient oriented x3 HENMT: COMMON NORMALS: normocephalic HEAD & SCALP: normocephalic Neck/C-Spine: COMMON NORMALS: no JVD Resp: COMMON NORMALS: normal respiratory effort, No retractions, No use of accessory muscles and clear to auscultation bilaterally AUSCULTATION: clear to auscultation bilaterally Cardio: COMMON NORMALS: regular rate, regular rhythm, S1 normal heart sound present and S2 normal heart sound present RATE: regular rate RHYTHM: regular rhythm HEART SOUNDS: S1 normal heart sound present and S2 normal heart sound present GI: COMMON NORMALS: Normal to inspection, nondistended, normoactive bowel sounds present, Soft to palpation and non-tender Extremity: COMMON NORMALS: no calf tenderness and no pedal edema NARRATIVE EXTREMITY EXAM: Was able to get patient to stand up by himself, is able to take a step, but feels unsteady on his feet, [id number] abnormal on the left,, tends to favor the left, no focal weakness of bilateral extremities, no focal weakness upper extremities, does complain of numbness left hand, first 2 digits Neuro: COMMON NORMALS: patient oriented x3, CN's II-XII intact bilaterally, moves all extremities and no focal motor deficits Psych: COMMON NORMALS: mental status grossly normal Data 07/23/24 18:49 07/23/24 18:49 A&P Assessment and plan (1) Acute CVA (cerebrovascular accident): Plan Acute CVA ? Symptom onset was 10 AM ? Numbness around mouth, numbness in first 2 digits left hand, unsteadiness on his feet, [id number] abnormal on the left, tends to favor the left, unsteadiness on his feet/gait # NIH stroke scale 2 ? Head CT no acute findings Has had CTA head and neck CT/CT angio headneck* [id number] IMPRESSION: 1. No large vessel occlusion. 2. 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 3. Areas of mild stenosis noted in the intracranial segments of the internal carotid arteries and left vertebral artery. IMPRESSION: 1. No severe stenosis or occlusion. 2. Mild stenosis at the origins of the internal carotid arteries. ? Plan ? Allow for permissive hypertension, treat if systolic greater than 220 or diastolic greater than 120 ? IV fluids ? Aspirin ? Plavix ? Statin ? Cardiac echo -MRI of the brain ? Will need to discuss with neurology in a.m. ? PT OT ? Telemetry monitoring # Full code # Lovenox for DVT prophylaxis Attestations Medical Necessity Statement*: Patient requires hospitalization, outpatient observation, for acute CVA Diagnoses Acute CVA (cerebrovascular accident) I63.9
--- NOTE | 2024-07-23 23:06 | USCV_ITS ---
Diaz Bravo Age: 83 Gender: M : 1940 Exam Date: 07/24/2024 00:09 Ordering Phys: Emanuel Kingston MD Technologist: KOURTNEY Exam Location: [facility] [place] Indication: HTN, facial numbness BP: 158 / 115 HR: 83 Rhythm: Sinus Technical Quality: Adequate MEASUREMENTS (Male / Female) Normal Values 2D ECHO LV Diastolic Diameter PLAX 3.9 cm 4.2 - 5.9 / 3.9 - 5.3 cm IVS Diastolic Thickness 1.3 cm 0.6 - 1.0 / 0.6 - 0.9 cm IVS Systolic Thickness 1.5 cm LVPW Diastolic Thickness 2.0 cm 0.6 - 1.0 / 0.6 - 0.9 cm LVPW Systolic Thickness 1.7 cm LVOT Diameter 2.0 cm LV Ejection Fraction 2D Teich 59.3 % LV Ejection Fraction MOD 4C 58.2 % LV Ejection Fraction MOD 2C 56.9 % LV Ejection Fraction 2C AL 58.8 % LA Diameter 4.1 cm LA Sys Volume AL 69.9 cm cubed LA Sys Volume Index AL 31.8 cm cubed/m squared Aorta at Sinotubular Diameter 2.8 cm IVC Diameter 2.3 cm M-MODE LA Ao Ratio MM 1.3 AV Cusp Separation MM 1.6 cm DOPPLER AV Peak Velocity 149.0 cm/s LVOT Peak Velocity 94.0 cm/s AV Area Cont Eq vti 2.5 cm squared AV Area Cont Eq pk 2.1 cm squared MV Peak Velocity 136.0 cm/s MV Area PHT 3.6 cm squared Mitral E to A Ratio 0.8 TR Peak Velocity 283.0 cm/s TR Peak Gradient 32.0 mmHg TV Peak E Velocity 52.0 cm/s PV Peak Velocity 124.0 cm/s FINDINGS Left Ventricle Normal left ventricular size and systolic function, EF 57%. No regional wall motion abnormalities. Grade I/IV diastolic dysfunction (abnormal relaxation filling pattern), normal to mildly elevated filling pressures. Mild left ventricular hypertrophy. Right Ventricle The right ventricle is normal in size and function. Right Atrium The right atrium is normal in size. Left Atrium Mildly increased left atrial size. Mitral Valve Mild mitral annular calcification. Trace mitral valve regurgitation. Aortic Valve Thickened aortic valve. Tricuspid Valve No gross abnormalities noted Pulmonic Valve Pulmonic valve not well visualized. Pericardium Normal pericardium without effusion. Aorta Normal ascending aorta dimension. IVC Normal inferior vena cava. CONCLUSIONS Normal left ventricular size and systolic function, EF 57%. No regional wall motion abnormalities. Grade I/IV diastolic dysfunction (abnormal relaxation filling pattern), normal to mildly elevated filling pressures. Mild left ventricular hypertrophy. Mildly increased left atrial size. Mild mitral annular calcification. Trace mitral valve regurgitation. Thickened aortic valve. There is no pericardial effusion. There are no intracardiac masses. No similar previous studies are available for comparison. Dr Angela Trejo MD FAC (Electronically Signed) Final Date: 24 July 2024 08:59 S
[2024-07-23 23:44] LABS: Chol HDL Ratio 3.49 mg/dL (1.0-5.00); Cholesterol 178 mg/dL (0-200); HDL Cholesterol 51 mg/dL (60-100); LDL Cholesterol Calculated 102 mg/dL (50-129); Triglycerides 126 mg/dL (0-150)
[2024-07-23] MEDS: pantoprazole 40 mg SDV IVP (23:56)
[2024-07-23] MEDS: enoxaparin 40 mg/0.4 mL Syringe SUBCUT (23:56)
[2024-07-23] MEDS: aspirin 81 mg EC Tablet PO (23:57)
[2024-07-23] MEDS: sodium chloride 0.9% 1,000 ML 75 ML IV (23:57)
[2024-07-23] MEDS: atorvastatin 40 mg Tablet PO (23:57)
[2024-07-23] MEDS: clopidogrel 75 mg Tablet PO (23:57)
[2024-07-24 00:15] LABS: Estmated Average Glucose 108; Hemoglobin A1C 5.4 % (4.0-6.0)
[2024-07-24 00:57] VITALS: BP 158/110; PULSE 101; RESP 22; TEMP 36.6; O2SAT 96
[2024-07-24 04:00] VITALS: BP 158/85; PULSE 90; RESP 16; TEMP 37.2; O2SAT 94
[2024-07-24 06:00] VITALS: PULSE 88
[2024-07-24] MEDS: levothyroxine 175 mcg Tablet PO (06:15)
[2024-07-24 08:00] VITALS: BP 165/97; PULSE 90; RESP 24; O2SAT 94
--- NOTE | 2024-07-24 09:26 | PC.CHAP ---
Pastoral Care Encounter/Spiritual Assessment Type of Contact [x] Declined grants administrator visit [] Patient/Family/Request visit [] Outpatient visit [] Follow-up visit [] Physician referral [] Code/Alert [X] Routine visit [] Staff referral [] Actively dying [] Patient sleeping [] Family support [] [] Out of room [] Palliative care [] [] Receiving care in room [] Pre-surgical visit [] Trauma [] Long length of stay [] ICU visit [] Other: Relational/Emotional Strength [X] Patient feels connected with others/family/visitors/staff [] Distress [] Loneliness/isolation [] Abandonment Spirituality of Patient [X] Person of Anahi [] Attends Scientology of their Anahi [X] Believes in Prayer [] Reads Bible or Alevism materials [] There are Spiritual issues to be addressed [employer] Interventions [] Prayer [X] Active listening [X] Non-anxious presence [] Spiritual/emotional support [] Crisis/trauma care [] Spiritual counseling [] Bereavement support [] Provided bereavement packet [] Provided Bible/devotional materials [] Provided toy/stuffed animal, coloring book to patient or family member [] Provided Communion [] Anointing/[place] [] Salvation [] Completed spiritual assessment [] Other: Impact on Illness or Injury [] Angry [] Fearful [x] Anxious [] Often cries [] Exhaustion [] Unable to work [] Unable to attend taoism [] Unable to walk/stand [] Unable to read [] Unable to drive [] Unable to eat/drink [] Unable to sleep [] Unable to be with family [] Patient intubated [] Other: Summary Talked would shortly No visit or prayer now but keep them in prayer +1 Time spent with patient
[2024-07-24 12:00] VITALS: BP 179/93; PULSE 86; RESP 22; TEMP 36.6; O2SAT 98
--- NOTE | 2024-07-24 13:31 | P.DS_ITS ---
Discharge Providers Date of Admission: 07/23/24 22:22 Date of Discharge: July 24, 2024 Attending Provider at Admission: Emanuel Kingston MD Attending Provider at Discharge: Jose Colunga MD Primary Care Provider: Mojgan Wilburn MD Diagnoses at Discharge Discharge Diagnosis (1) Acute CVA (cerebrovascular accident): Status: Acute Reason for Visit Reason for Visit: lips are numb, left arm 2 fingers numb Brief History: History as per HPI: Diaz Bravo is a 83 year old male with a past medical history of osteoarthritis, hypertension, history of Way's palsy, history of Guillain- Hua?, history of shingles, who presents to [facility] due to un steadiness on his feet, numbness around his mouth, numbness left hand first 2 digits. Currently patient is alert oriented x 3, point all commands, denies any facial droop, no slurring of words, no visual deficits, denies any focal weakness currently. Currently his biggest complaint is numbness around his mouth, he also thinks he might have some numbness on his tongue, he has intermittent numbness of his left hand, first 2 digits, and he was able to ambulate in the hallway with the help of staff he feels unsteady on his feet. He tells me that all his symptoms started this morning at about 10 AM, he drove into town, when he was coming back, to his home, he started noticing his symptoms, he is quite independent, he has never had a stroke before, denies any other focal weakness, does feel unsteady on his feet, does report dizziness, no receptive or productive aphasia, no headache, no blurry vision. 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 He had an MRI which was consistent with a right lacunar stroke. During hospitalization he was seen by various therapies and did well. He was found to have elevated blood pressures for which his antihypertensives have been adjusted. Going forward he is to take lisinopril 40 mg oral daily. He is to check his blood pressure daily at home maintain a blood pressure diary and follow-up with the PCP on set appointment further adjustment of antihypertensive. He should follow-up with neurologist within next 2 weeks. Physical Exam Const: COMMON NORMALS: no acute distress and patient oriented x3 HENMT: COMMON NORMALS: normocephalic HEAD & SCALP: normocephalic Neck/C-Spine: COMMON NORMALS: no JVD Resp: COMMON NORMALS: normal respiratory effort, No retractions, No use of accessory muscles and clear to auscultation bilaterally AUSCULTATION: clear to auscultation bilaterally Cardio: COMMON NORMALS: no JVD, regular rate, regular rhythm, S1 normal heart sound present and S2 normal heart sound present RATE: regular rate RHYTHM: regular rhythm HEART SOUNDS: S1 normal heart sound present and S2 normal heart sound present GI: COMMON NORMALS: Normal to inspection, nondistended, normoactive bowel sounds present, Soft to palpation and non-tender PALPATION: Yes Soft to palpation Extremity: COMMON NORMALS: no calf tenderness and no pedal edema NARRATIVE EXTREMITY EXAM: Was able to get patient to stand up by himself, is able to take a step, but feels unsteady on his feet, [id number] abnormal on the left,, tends to favor the left, no focal weakness of bilateral extremities, no focal weakness upper extremities, does complain of numbness left hand, first 2 digits Neuro: COMMON NORMALS: patient oriented x3, CN's II-XII intact bilaterally, moves all extremities and no focal motor deficits Psych: COMMON NORMALS: mental status grossly normal Discharge Data Studies Completed and Pending Completed Studies During Hospitalization Category Date Time Status CT head wo con* [id number] Stat Cat Scan 07/23/24 18:40 Completed CTA head neck [CT angio headneck* [id number]] Stat Cat Scan 07/23/24 18:40 Completed MR head wo con* [id number] Routine MRI 07/24/24 23:06 Completed CV. echo complete* [id number] Routine Ultrasound 07/23/24 23:06 Completed Radiology Impressions Head CT 07/23/24 18:40 IMPRESSION: No acute intracranial abnormality. ASSESSMENT: ASPECTS (Darya Stroke Program Early CT Score) is 10. ADDENDUM: 12/19/24 1858 Findings were discussed with LOUISA GODWIN at 07/23/2024 6:57 PM NON GARMENT SEWING MACHINE OPERATOR. Head/Neck CTA 07/23/24 18:40 IMPRESSION: 1. No large vessel occlusion. 2. 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 3. Areas of mild stenosis noted in the intracranial segments of the internal carotid arteries and left vertebral artery. IMPRESSION: 1. No severe stenosis or occlusion. 2. Mild stenosis at the origins of the internal carotid arteries. REFERENCES: NASCET CRITERIA. The degree of stenosis in the cervical segment of the internal carotid artery is based on NASCET criteria. Normal is no stenosis. Mild is less than 50% stenosis. Moderate is 50-69% stenosis. Severe is 70% to 99% stenosis. Total occlusion is no detectable patent lumen. ADDENDUM: 07/23/241934 Findings were discussed with Dr. Cuenca at 07/23/2024 7:33 PM NON GARMENT SEWING MACHINE OPERATOR. Head MRI 07/24/24 23:06 IMPRESSION: 1. Acute lacunar infarct RIGHT thalamus. 2. Mild cerebral and cerebellar atrophy with mild small vessel ischemic changes. No prior large infarct. Echocardiogram CONCLUSIONS Normal left ventricular size and systolic function, EF 57%. No regional wall motion abnormalities. Grade I/IV diastolic dysfunction (abnormal relaxation filling pattern), normal to mildly elevated filling pressures. Mild left ventricular hypertrophy. Mildly increased left atrial size. Mild mitral annular calcification. Trace mitral valve regurgitation. Thickened aortic valve. There is no pericardial effusion. There are no intracardiac masses. No similar previous studies are available for comparison. Dr Angela Trejo MD [facility] (Electronically Signed) Final Date: 24 July 2024 Laboratory Results WBC 7.74 10^3/uL (3.29-11.43) 07/23/24 18:49 RBC 4.95 10^6/uL (3.85-5.65) 07/23/24 18:49 Hgb 15.90 g/dL (11.27-16.99) 07/23/24 18:49 Hct 47.3 % (37-53) 07/23/24 18:49 MCV 95.6 fl (82-101) 07/23/24 18:49 MCH 32.1 pg (27-33) 07/23/24 18:49 MCHC 33.6 g/dL (30-55) 07/23/24 18:49 RDW 12.4 % (12.1-15.1) 07/23/24 18:49 Plt Count 211 10^3/cmm (157-399) 07/23/24 18:49 MPV 11.1 fL (7.4-10.4) H 07/23/24 18:49 Neut % (Auto) 69.3 % 07/23/24 18:49 Lymph % (Auto) 20.0 % 07/23/24 18:49 Dundy % (Auto) 7.5 % 07/23/24 18:49 Eos % (Auto) 2.2 % 07/23/24 18:49 Baso % (Auto) 0.4 % 07/23/24 18:49 Neut # (Auto) 5.36 10^3/uL (1.8-7.7) 07/23/24 18:49 Lymph # (Auto) 1.6 10^3/uL (0.8-4.8) 07/23/24 18:49 Dundy # (Auto) 0.6 10^3/uL (0.2-0.9) 07/23/24 18:49 Eos # (Auto) 0.2 10^3/uL (0.0-0.8) 07/23/24 18:49 Baso # (Auto) 0.0 10^3/uL (0.0-0.1) 07/23/24 18:49 Nucleated RBC % (auto) 0 % 07/23/24 18:49 Nucleated RBCs # 0.0 /100WBC 07/23/24 18:49 PT 13.10 SECONDS (12.1-14.9) 07/23/24 18:49 INR 0.96 (0.8-1.2) 07/23/24 18:49 APTT 28.6 SECONDS (23.9-36.7) 07/23/24 18:49 Specimen Type Arterial 07/23/24 20:28 Sample Site Radial, right 07/23/24 20:28 ABG pH 7.42 (7.35-7.45) 07/23/24 20:28 ABG pCO2 37.9 mmHg (35-45) 07/23/24 20:28 ABG pO2 84.8 mmHg (80.0-100.0) 07/23/24 20:28 ABG PO2/FiO2 Ratio 403 07/23/24 20:28 ABG HCO3 24.8 mmol/L (22-26) 07/23/24 20:28 ABG O2 Saturation 97.6 07/23/24 20:28 ABG Base Excess 0.6 mmol/L (-2.0-2.0) 07/23/24 20:28 Jerson Test Pos 07/23/24 20:28 A-a O2 Gradient 2.3 mmHg (5-10) L 07/23/24 20:28 Hematocrit 48.9 % (42-52) 07/23/24 20:28 Hgb O2 Saturation 95.7 % (95-100) 07/23/24 20:28 Carboxyhemoglobin 1.1 %THgb (0.4-20.1) 07/23/24 20:28 Methemoglobin 0.9 % (0.4-1.5) 07/23/24 20:28 Total Hemoglobin 15.9 g/dL (14-18) 07/23/24 20:28 Sodium 141.0 mmol/L (131-143) 07/23/24 20:28 Potassium 3.7 mmol/L (3.5-5.0) 07/23/24 20:28 Glucose 117.0 mg/dL (70-115) H 07/23/24 20:28 Ionized Calcium 1.2 mmol/L (1.1-1.4) 07/23/24 20:28 O2 Delivery Device Room air 07/23/24 20:28 FiO2 21.0 % 07/23/24 20:28 Robotic Machine Tender Production ID [id number] 07/23/24 20:28 Sodium 138 mmol/L (136-145) 07/23/24 18:49 Potassium 3.9 mmol/L (3.5-5.1) 07/23/24 18:49 Chloride 101 mmol/L (98-107) 07/23/24 18:49 Carbon Dioxide 26 mmol/L (22-29) 07/23/24 18:49 Anion Gap 14.9 (5-19) 07/23/24 18:49 BUN 16 mg/dL (8-23) 07/23/24 18:49 Creatinine 0.8 mg/dL (0.7-1.2) 07/23/24 18:49 GFR Calculation Not Reportable 07/23/24 18:49 Glucose 114 mg/dL (65-115) 07/23/24 18:49 POC Glucose 109 mg/dL (70-110) 07/23/24 19:03 Estimat Average Glucose 108 07/23/24 18:49 Hemoglobin A1c 5.4 % (4.0-6.0) 07/23/24 18:49 Calculated Osmolality 288 mOsm/kg (285-295) 07/23/24 18:49 Calcium 10.4 mg/dL (8.5-10.5) 07/23/24 18:49 Total Bilirubin 0.6 mg/dL (0.15-1.2) 07/23/24 18:49 AST 25 U/L (0-40) 07/23/24 18:49 ALT 25 U/L (0-41) 07/23/24 18:49 Alkaline Phosphatase 85 U/L (40-130) 07/23/24 18:49 Total Protein 8.2 g/dL (6.6-8.7) 07/23/24 18:49 Albumin 4.5 g/dL (3.5-5.2) 07/23/24 18:49 Globulin 3.7 g/dL (1.3-4.6) 07/23/24 18:49 Triglycerides 126 mg/dL (0-150) 07/23/24 18:49 Cholesterol 178 mg/dL (0-200) 07/23/24 18:49 LDL Cholesterol, Calc 102 mg/dL (50-129) 07/23/24 18:49 HDL Cholesterol 51 mg/dL (60-100) L 07/23/24 18:49 LDL/HDL Ratio 2.00 RATIO (0.00-3.22) 07/23/24 18:49 Cholesterol/HDL Ratio 3.49 mg/dL (1.0-5.00) 07/23/24 18:49 TSH 0.60 uIU/mL (0.27-4.20) 07/23/24 18:49 Urine Color Yellow (Yellow) 07/23/24 19:52 Urine Appearance Clear (CLEAR) 07/23/24 19:52 Urine pH 7.0 (5-7) 07/23/24 19:52 Ur Specific Ophelia 1.038 (1.005-1.030) H 07/23/24 19:52 Urine Protein Negative (Negative) 07/23/24 19:52 Urine Glucose (UA) Negative (Normal) 07/23/24 19:52 Urine Ketones Negative (Negative) 07/23/24 19:52 Urine Blood Negative (Negative) 07/23/24 19:52 Urine Nitrate Negative (Negative) 07/23/24 19:52 Urine Bilirubin Negative (Negative) 07/23/24 19:52 Urine Urobilinogen 0.2 mg/dL (Negative) 07/23/24 19:52 Ur Leukocyte Esterase 2+ (Negative) A 07/23/24 19:52 Urine RBC 0-2 /hpf (0-2) 07/23/24 19:52 Urine WBC 6-10 /hpf (0-5) 07/23/24 19:52 Ur Squamous Epith Cells 0-5 /hpf (0-5) 07/23/24 19:52 Amorphous Sediment Not Reportable 07/23/24 19:52 Urine Bacteria None seen /hpf (NONE) 07/23/24 19:52 Hyaline Casts 0.81 /lpf 07/23/24 19:52 Vitals Last Vital Signs Temp 97.9 F 07/24/24 12:00 Pulse 86 07/24/24 12:00 Resp 22 H 07/24/24 12:00 BP 179/93 07/24/24 12:00 Pulse Ox 98 07/24/24 12:00 O2 Del Method Room Air 07/24/24 12:00 Discharge Plan Discharge Patient Disposition: Home Condition: Stable Prescriptions: New aspirin 81 mg Tablet,Delayed Release (Dr/Ec) 81 mg PO Q24H Qty: 30 0RF atorvastatin 40 mg Tablet 40 mg PO BEDTIME Qty: 30 0RF lisinopril 40 mg tablet 40 mg PO DAILY Qty: 30 0RF Continued Tart José Extract 1,000 mg capsule 1,200 mg PO 1XD gabapentin 300 mg capsule 300 mg PO BID PRN (Reason: neuropathic pain from zoster) Qty: 180 1RF triamcinolone acetonide 40 mg/mL suspension 40 mg Tendon Sheath Inj. ONCE Qty: 1 0RF sulindac 200 mg tablet 200 mg PO BID PRN (Reason: arthritis pain) Qty: 20 0RF Rx Instructions: arthritis pain instead of ibuprofen levothyroxine 175 mcg capsule 175 mcg PO DAILY Qty: 90 3RF (DME) CPAP machine / supplies See Rx Instructions .Route .MEDSUPPLY Qty: 1 0RF Rx Instructions: Pressure setting 5-12. As directed multivitamin [Multi-Vitamin] Tablet 1 tab PO DAILY@0600 Discontinued lisinopril 10 mg tablet 10 mg PO DAILY Qty: 90 2RF Discharge Orders: Discharge Order (Routine); Ordered 07/24/24 Ordered By: Jose Colunga Referrals: Chelsie Vigil MD [Physician] - 2 weeks Mojgan Wilburn MD [Primary Care Provider] - 08/03/24 11:00 am Discharge Diet: Cardiac Discharge Activity: Resume usual activity and Increase activity as tolerated Patient Instructions: Opioid Safety Discharge Attestations Time Spent in Discharge Care*: greater than 30 min Specific Discharge Activities: educating patient, educating and/or supporting family/caregiver, discussing with pcp/other providers, discussing with case specialist/social workers/dc planners and documenting/other paperwork Status at Discharge: Cognitive status at discharge: cognitively intact , Behavioral status at discharge: cooperative , Functional status at discharge: independent ambulation , Overall status at discharge: patient is progressing back to baseline Quality Metrics Clinical Quality Measures [ Cerebrovascular Accident { Contraindication to Antithrombotic: None; antithrombotic prescribed; Contraindication to Anticoagulation: Overlap treatment not indicated; Contraindication to Statin: None; Statin prescribed;}] Coding Level of Care Code 11034 Total time (in minutes) for Discharge: 60 Diagnoses Acute CVA (cerebrovascular accident) I63.9
[2024-07-24 13:51] VITALS: BP 179/93; PULSE 85; RESP 24; TEMP 36.9; O2SAT 94
--- NOTE | 2024-07-24 23:06 | MR_ITS ---
WS: [id number] MRI BRAIN WITHOUT CONTRAST HISTORY: cva COMPARISON: CT 07/23/2024 TECHNIQUE: Diffusion imaging, multiplanar T1, T2 and FLAIR imaging obtained. Acute diffusion abnormality involving the RIGHT thalamus. This is a small lacunar infarct measuring a pproximately 8 mm. No additional acute infarct. Mild bilateral cerebral and cerebellar atrophy. Mild small vessel ischemic disease in the periventric ular and subcortical white matter. No large prior infarct. Ventricles and extra-axial spaces are normal. No inferior displacement of cerebellar tonsils. The sella turcica and pituitary gland are unremarkabl e. Dural venous sinuses and [place] demonstrate no abnormality on this unenhanced studies. Paranasal sinuses: Clear. Mastoid air cells: Normal. Calvarium and scalp: Intact. MR/MR head wo con* [id number] IMPRESSION: 1. Acute lacunar infarct RIGHT thalamus. 2. Mild cerebral and cerebellar atrophy with mild small vessel ischemic change s. No prior large infarct.
== END 2024-07-24 14:19 | disposition home or self-care (01) ==
LOC: ER 21:48 → CSU 22:22
PROVIDERS: Admitting Provider Family Medicine; Emergency Provider Emergency Medicine; PCP Family Medicine; Visit Provider Student in an Organized Health Care Education/Training Program
DX: I63.9 Cerebral infarction, unspecified (principal); M19.90 Unspecified osteoarthritis, unspecified site; I10 Essential (primary) hypertension; E03.9 Hypothyroidism, unspecified; G47.33 Obstructive sleep apnea (adult) (pediatric); Z87.891 Personal history of nicotine dependence
CPT/HCPCS: 36415; 36416; 70450; 70496; 70498; 70551; 80051; 80053; 80061; 81001; 82330; 82805; 82962; 83036; 84443; 85025; 85610; 85730; 92523; 92610; 93005; 93306; 94664; 96372; 96374; 96375; 96376; 97110; 97161; 97530; 99285; A9270; G0378; J0360; J0696; J1650; J2470; J7030

== ENCOUNTER → 2024-10-08 12:38 | Outpatient (BNVA) | payer MEDICARE, SELFPAY | PROVIDERS: PCP Family Medicine; Referring Provider Family Medicine; Visit Provider Specialist | DX: Z09 Encounter for follow-up examination after completed treatment for conditions other than malignant neoplasm (principal); I63.81 Other cerebral infarction due to occlusion or stenosis of small artery; R26.9 Unspecified abnormalities of gait and mobility | CPT/HCPCS: 99205 ==

== ENCOUNTER → 2025-07-14 11:26 | Outpatient (BNVA) | payer MEDICARE, SELFPAY | PROVIDERS: PCP Family Medicine; Visit Provider Family Medicine | DX: E03.9 Hypothyroidism, unspecified (principal); I10 Essential (primary) hypertension; I63.9 Cerebral infarction, unspecified | CPT/HCPCS: 80053; 80061; 84443; 85025 ==